=== PATIENT | male | born 1940 | race Caucasian/White ===

== ENCOUNTER 2017-12-17 15:53 | Emergency (ER) | payer MEDICARE, OTHER ==
[~2017-12-17 15:53] MED LIST: FINA1TAB2 PO; IBUP-232 PO; LORTA5 PO; [UNRECOGNIZED DRUG - REMARK]
[2017-12-17 16:25] VITALS: BP 114/65; PULSE 69; RESP 16; TEMP 98.3; O2SAT 96
[2017-12-17 17:55] LABS: BASOPHIL % 0.6 % (0.0-2.0); EOSINOPHIL # 0.2 TH/MM3 (0-0.4); EOSINOPHIL % 4.3 % (0.0-4.0); HEMATOCRIT 46.6 % (39.0-51.0); HEMOGLOBIN 16.3 GM/DL (13.0-17.0); LYMPH % 32.6 % (9.0-44.0); LYMPHOCYTE # 1.8 TH/MM3 (1.0-4.8); MEAN CELL VOLUME 90.1 FL (80.0-100.0); MEAN CORPUSCULAR HEMOGLOBIN 31.6 PG (27.0-34.0); MEAN PLATELET VOLUME 7.1 FL (7.0-11.0); MONO % 8.3 % (0.0-8.0); MONOCYTE # 0.5 TH/MM3 (0-0.9); NEUT % 54.2 % (16.0-70.0); PLATELET COUNT 184 TH/MM3 (150-450); RED BLOOD COUNT 5.17 MIL/MM3 (4.50-5.90); RED CELL DISTRIBUTION WIDTH 13.6 % (11.6-17.2); WHITE BLOOD COUNT 5.5 TH/MM3 (4.0-11.0)
[2017-12-17 18:17] LABS: ALBUMIN 3.9 GM/DL (3.4-5.0); AST (GOT) 55 U/L (15-37); BICARBONATE 26.7 MEQ/L (21.0-32.0); BLOOD UREA NITROGEN 7 MG/DL (7-18); CHLORIDE 101 MEQ/L (98-107); CREATININE 1.16 MG/DL (0.60-1.30); GLUCOSE,RANDOM 268 MG/DL (74-106); SODIUM (NA) 135 MEQ/L (136-145)
[2017-12-17 18:18] LABS: ALT (GPT) 79 U/L (12-78)
[2017-12-17 18:19] LABS: BILIRUBIN, URINE NEG (NEG); BLOOD, URINE NEG (NEG); GLUCOSE,URINE 1000 mg/dL (NEG); KETONE, URINE NEG (NEG); NITRITE,URINE NEG (NEG); URINE COLOR YELLOW (YELLW/STRAW); URINE LEUKOCYTE ESTERASE NEG (NEG)
[2017-12-17 18:20] LABS: ALKALINE PHOSPHATASE 90 U/L (45-117); TOTAL BILIRUBIN ADULT 0.4 MG/DL (0.2-1.0)
[2017-12-17 18:22] LABS: PROTHROMBIN TIME - PATIENT 10.3 SEC (9.8-11.6)
[2017-12-17] MEDS ORDERED: SODIUM CHLOR 0.9% 1000 ML INJ 1,000 ML IV ONE (18:45)
[2017-12-17 19:14] LABS: TROPONIN I LESS THAN 0.02 NG/ML (0.02-0.05)
--- NOTE | 2017-12-17 19:36 | RADRPT ---
EXAM DATE/TIME: 12/17/2017 18:45 [facility] COMPARISON: No previous studies available for comparison. INDICATIONS : Palpitations. Patient states weakness for past two months. MEDICAL HISTORY : Diabetes mellitus type II. SURGICAL HISTORY : None. ENCOUNTER: Initial ACUITY: 2 months PAIN SCORE: 0/10 LOCATION: Bilateral chest FINDINGS: A single view of the chest demonstrates the lungs to be symmetrically aerated without evidence of mas s, infiltrate or effusion. The cardiomediastinal contours are unremarkable. Osseous structures are intact. CONCLUSION: No acute disease. Mike Choudhury MD on December 17, 2017 at 19:33 Board Certified Radiologist. This report was verified electronically.
[2017-12-17] MEDS ORDERED: IOHEXOL 350 MG/ML 10 ML VIAL (for RAD DIAG) IVCONTRAST ONE (19:40)
--- NOTE | 2017-12-17 19:44 | RADRPT ---
EXAM DATE/TIME: 12/17/2017 19:29 [facility] COMPARISON: No previous studies available for comparison. INDICATIONS : Cephalgia. RADIATION DOSE: 64.63 CTDIvol (mGy) MEDICAL HISTORY : Diabetes. SURGICAL HISTORY : None. ENCOUNTER: Initial ACUITY: 1 month PAIN SCALE: 7/10 LOCATION: cranial TECHNIQUE: Multiple contiguous axial images were obtained of the head. Using automated exposure control and adj ustment of the mA and/or kV according to patient size, radiation dose was kept as low as reasonably a chievable to obtain optimal diagnostic quality images. DICOM format image data is available electro nically for review and comparison. FINDINGS: CEREBRUM: The ventricles are normal for age. No evidence of midline shift, mass lesion, hemorrhage or acute in farction. No extra-axial fluid collections are seen. POSTERIOR FOSSA: The cerebellum and brainstem are intact. The 4th ventricle is midline. The cerebellopontine angle i s unremarkable. EXTRACRANIAL: The visualized portion of the orbits is intact. SKULL: The calvaria is intact. No evidence of skull fracture. CONCLUSION: Negative noncontrast head CT with diffuse atrophic change. Mike Choudhury MD on December 17, 2017 at 19:41 Board Certified Radiologist. This report was verified electronically.
--- NOTE | 2017-12-17 19:46 | RADRPT ---
EXAM DATE/TIME: 12/17/2017 19:34 [facility] COMPARISON: No previous studies available for comparison. INDICATIONS : Right side abdomen pain. IV CONTRAST: 100 cc Omnipaque 350 (iohexol) IV ORAL CONTRAST: No oral contrast ingested. RADIATION DOSE: 8.43 CTDIvol (mGy) MEDICAL HISTORY : Diabetes. SURGICAL HISTORY : None. ENCOUNTER: Initial ACUITY: 1 month PAIN SCALE: 5/10 LOCATION: Right abdomen. TECHNIQUE: Volumetric scanning of the abdomen and pelvis was performed. Using automated exposure control and ad justment of the mA and/or kV according to patient size, radiation dose was kept as low as reasonably achievable to obtain optimal diagnostic quality images. DICOM format image data is available electro nically for review and comparison. FINDINGS: LOWER LUNGS: The visualized lower lungs are clear. LIVER: Homogeneous density without lesion. There is no dilation of the biliary tree. No calcified gallston es. There is moderate hepatic steatosis. The gallbladder is unremarkable. SPLEEN: Normal size without lesion. PANCREAS: Within normal limits. KIDNEYS: Normal in size and shape. There is no mass, stone or hydronephrosis. ADRENAL GLANDS: Within normal limits. VASCULAR: There is no aortic aneurysm. BOWEL/MESENTERY: No oral contrast was given limiting the sensitivity of the exam. There is normal appendix. The stomac h, small bowel, and colon demonstrate no acute abnormality. There is no free intraperitoneal air or fluid. ABDOMINAL WALL: Within normal limits. RETROPERITONEUM: There is no lymphadenopathy. BLADDER: No wall thickening or mass. REPRODUCTIVE: Within normal limits. INGUINAL: There is no lymphadenopathy or hernia. MUSCULOSKELETAL: Within normal limits for patient age. CONCLUSION: 1. Unremarkable bowel gas pattern and normal appendix. 2. Moderate hepatic steatosis. 3. Unremarkable gallbladder. Mike Choudhury MD on December 17, 2017 at 19:42 Board Certified Radiologist. This report was verified electronically.
[2017-12-17] MEDS ORDERED: ZOFR4TAB3 SL (20:48)
[2017-12-17] MEDS ORDERED: DICL75TA PO (20:48)
--- NOTE | 2017-12-17 20:58 | PD ---
HPI Chief Complaint: General Weakness Time Seen by Provider: 18:07 Travel History International Travel<30 days: No Contact w/Intl Traveler<30days: No Traveled to known affect area: No History of Present Illness HPI 77-year-old male that presents to the ED for evaluation of fatigue. Patient has had fatigue for about 1 month. Per patient is progressively getting worse. Per patient about 3 months ago he was told that his liver enzymes were elevated and his doctor "scared me "into stop drinking alcohol. Per patient for the past 15 years since being retired has been drinking a lot more as he has nothing else to do. Per patient his doctor told him to stop because this is causing some liver problems. Per patient he does drink on occasion but nothing recently. When asked when his last time he drank actually told me that he drank a bottle of wine yesterday. Per patient he has been feeling tired even after he sleeps. Per patient he feels tired and feels like he is falling asleep during the day. He does not wake up feeling rested at all. He has not seen his doctor for this however. He denies any chest pain or shortness of breath. He states having some headaches on occasion as well as some back pain that he has had for the past couple days. He is not sure if this is related or not. Per patient he believes that the back pain secondary to his liver issues. He states that he is not really sure what his liver issues are but he was told that he likely has problems secondary to his alcohol intake. States that his pain is 2 out of 10. PFSH Past Medical History Diabetes: Yes Musculoskeletal: Yes (RECENT FX OF L ANKLE) Social History Alcohol Use: Yes (OFTEN) Tobacco Use: No Substance Use: No Allergies-Medications (Allergen,Severity, Reaction): Coded Allergies: No Known Allergies (Verified Adverse Reaction, Unknown, 12/17/17) Reported Meds & Prescriptions Reported Meds & Active Scripts Active Diclofenac Sodium DR (Diclofenac Sodium) 75 Mg Tabdr 75 Mg PO BID PRN Zofran Odt (Ondansetron Odt) 4 Mg Tab 4 Mg SL Q6HR PRN Reported [unk diabetic med] DAILY Review of Systems Except as stated in HPI: all other systems reviewed are Neg Physical Exam Narrative GENERAL: SKIN: Warm and dry. HEAD: Atraumatic. Normocephalic. EYES: Pupils equal and round. No scleral icterus. No injection or drainage. ENT: No nasal bleeding or discharge. Mucous membranes pink and moist. Tongue is midline. No uvula deviation. NECK: Trachea midline. No JVD. CARDIOVASCULAR: Regular rate and rhythm. No murmurs, S3, S4. RESPIRATORY: No accessory muscle use. Clear to auscultation. Breath sounds equal bilaterally. GASTROINTESTINAL: Abdomen soft, non-tender, nondistended. Hepatic and splenic margins not palpable. MUSCULOSKELETAL: Extremities without clubbing, cyanosis, or edema. No obvious deformities. Full range of motion of the upper and lower extremities bilaterally. 2+ pulses bilaterally. NEUROLOGICAL: Awake and alert. No obvious cranial nerve deficits. Motor grossly within normal limits. Five out of 5 muscle strength in the arms and legs. Normal speech. PSYCHIATRIC: Appropriate mood and affect; insight and judgment normal. Data Data Last Documented VS Vital Signs Date Time Temp Pulse Resp B/P (MAP) Pulse Ox O2 Delivery O2 Flow Rate FiO2 12/17/17 16:25 98.3 69 16 114/65 (81) 96 Orders Orders Complete Blood Count With Diff (12/17/17 16:29) Comprehensive Metabolic Panel (12/17/17 16:29) Lipase (12/17/17 16:29) Prothrombin Time / Inr (Pt) (12/17/17 16:29) Act Partial Throm Time (Ptt) (12/17/17 16:29) Urinalysis - C+S If Indicated (12/17/17 16:29) Ckmb (Isoenzyme) Profile (12/17/17 18:19) Troponin I (12/17/17 18:19) B-Type Natriuretic Peptide (12/17/17 18:19) Thyroid Stimulating Hormone (12/17/17 18:19) Chest, Single Ap (12/17/17 18:19) Ct Brain W/O Iv Contrast(Rout) (12/17/17 18:19) Alcohol (Ethanol) (12/17/17 18:19) Ct Abd/Pel W Iv Contrast(Rout) (12/17/17 ) Sodium Chlor 0.9% 1000 Ml Inj (Ns 1000 M (12/17/17 18:45) Iohexol 350 Inj (Omnipaque 350 Inj) (12/17/17 19:40) Ed Discharge Order (12/17/17 20:47) Labs Laboratory Tests Test 12/17/17 17:10 White Blood Count 5.5 TH/MM3 Red Blood Count 5.17 MIL/MM3 Hemoglobin 16.3 GM/DL Hematocrit 46.6 % Mean Corpuscular Volume 90.1 FL Mean Corpuscular Hemoglobin 31.6 PG Mean Corpuscular Hemoglobin Concent 35.0 % Red Cell Distribution Width 13.6 % Platelet Count 184 TH/MM3 Mean Platelet Volume 7.1 FL Neutrophils (%) (Auto) 54.2 % Lymphocytes (%) (Auto) 32.6 % Monocytes (%) (Auto) 8.3 % Eosinophils (%) (Auto) 4.3 % Basophils (%) (Auto) 0.6 % Neutrophils # (Auto) 3.0 TH/MM3 Lymphocytes # (Auto) 1.8 TH/MM3 Monocytes # (Auto) 0.5 TH/MM3 Eosinophils # (Auto) 0.2 TH/MM3 Basophils # (Auto) 0.0 TH/MM3 CBC Comment DIFF FINAL Differential Comment Prothrombin Time 10.3 SEC Prothromb Time International Ratio 1.0 RATIO Activated Partial Thromboplast Time 25.0 SEC Urine Color YELLOW Urine Turbidity CLEAR Urine pH 5.0 Urine Specific [place] 1.026 Urine Protein NEG mg/dL Urine Glucose (UA) 1000 mg/dL Urine Ketones NEG mg/dL Urine Occult Blood NEG Urine Nitrite NEG Urine Bilirubin NEG Urine Urobilinogen LESS THAN 2.0 MG/DL Urine Leukocyte Esterase NEG Microscopic Urinalysis Comment CULT NOT INDICATED Blood Urea Nitrogen 7 MG/DL Creatinine 1.16 MG/DL Random Glucose 268 MG/DL Total Protein 8.0 GM/DL Albumin 3.9 GM/DL Calcium Level 9.0 MG/DL Alkaline Phosphatase 90 U/L Aspartate Amino Transf (AST/SGOT) 55 U/L Alanine Aminotransferase (ALT/SGPT) 79 U/L Total Bilirubin 0.4 MG/DL Sodium Level 135 MEQ/L Potassium Level 3.9 MEQ/L Chloride Level 101 MEQ/L Carbon Dioxide Level 26.7 MEQ/L Anion Gap 7 MEQ/L Total Creatine Kinase 93 U/L Troponin I LESS THAN 0.02 NG/ML Lipase 1881 U/L Thyroid Stimulating Hormone 3rd Gen 2.000 uIU/ML Ethyl Alcohol Level LESS THAN 3 MG/DL MDM Medical Decision Making Medical Screen Exam Complete: Yes Emergency Medical Condition: Yes Medical Record Reviewed: Yes Interpretation(s) CBC & BMP Diagram 12/17/17 17:10 Total Protein 8.0, Albumin 3.9, Calcium Level 9.0, Alkaline Phosphatase 90, Aspartate Amino Transf (AST/SGOT) 55 H, Alanine Aminotransferase (ALT/SGPT) 79 H , Total Bilirubin 0.4 lipase in the 1800s troponin and CKMB negative TSH WNL Last Impressions Head CT 12/17/[id number] Signed Impressions: Service Date/Time: Sunday, December 17, 2017 19:29 - CONCLUSION: Negative noncontrast head CT with diffuse atrophic change. Mike Choudhury MD Chest X-Ray [id number]/17/[id number] Signed Impressions: Service Date/Time: Sunday, December 17, 2017 18:45 - CONCLUSION: No acute disease. Mike Choudhury MD Abdomen/Pelvis CT 12/17/17 0000 Signed Impressions: Service Date/Time: Sunday, December 17, 2017 19:34 - CONCLUSION: 1. Unremarkable bowel gas pattern and normal appendix. 2. Moderate hepatic steatosis. 3. Unremarkable gallbladder. Mike Choudhury MD Differential Diagnosis Electrolyte abnormality versus pancreatitis versus fatigue versus electrolyte normality versus dehydration versus liver injury versus liver failure Narrative Course 77-year-old male that presents to the ED for evaluation of fatigue for 1 month. Patient was properly examined and was found to have signs and symptoms of unclear etiology at this time. Very nonspecific symptoms. Patient has back pain and headache. Patient does state that his doctor told him that he needed to stop drinking and apparently was found to have elevated LFTs. Labs and imaging were ordered. Labs and imaging were unremarkable other than for what appears to be elevated lipase in the . Patient was given IV fluids here. Patient not really a lot of pain. Per patient his pain is 2 out of 10 on his back. On reexamination he does not appear to have a lot of abdominal pain. He states that he has no appetite however. Unclear as to what the fatigue and other symptoms are but this is likely secondary to his pancreatitis. I highly recommend to the patient that he stays secondary to the highly elevated lipase and no history of this in the past. Patient prefers to go home as he does not want to stay in the hospital. He states that he will follow with his doctor. He understands that by leaving his illness to get worse and he could have significant disease including . AMA: The risks of leaving against medical advice without further evaluation treatment were discussed with the patient. These risks include cardiac dysfunction, cardiac dysrhythmia, possible heart attack, possible stroke or . The patient indicated understanding of these risks and appeared to have the capacity to make this decision. This time patient was told to the liquid diet and trial of nothing by mouth to help improve symptoms. Patient was given a short prescription for Zofran and diclofenac sodium. Told to follow closely with PCP. See ED worsening symptoms. he understands reasons to come back. Diagnosis Primary Impression: Acute pancreatitis Qualified Codes: K85.20 - Alcohol induced acute pancreatitis without necrosis or infection Additional Impression: Fatigue Qualified Codes: R53.83 - Other fatigue Patient Instructions: General Instructions Additional Instructions: Take medications as prescribed. Follow-up with PCP or ED if anything worsens. Liquid diet until better. Med/Other Pt SpecificInfo: Prescription(s) given Scripts Diclofenac Sodium DR (Diclofenac Sodium DR) 75 Mg Tabdr 75 MG PO BID Y for PAIN SCALE 1 TO 10, #20 TAB 0 Refills Prov: June Rob MD 12/17/17 Ondansetron Odt (Zofran Odt) 4 Mg Tab 4 MG SL Q6HR Y for Nausea/Vomiting, #20 TAB 0 Refills Prov: June Rob MD 12/17/17 Disposition: 07 AGAINST MEDICAL ADVICE Condition: Sachin Dennis Dec 17, 2017 20:58
== END 2017-12-17 21:26 | disposition left against medical advice (07) ==
LOC: NEPE 15:53
DX: K85.90 Acute pancreatitis without necrosis or infection, unspecified (principal); R53.83 Other fatigue; R51 Headache; K76.0 Fatty (change of) liver, not elsewhere classified; E11.9 Type 2 diabetes mellitus without complications; Z79.899 Other long term (current) drug therapy
CPT/HCPCS: 70450; 71045; 74177; 80053; 80307; 81001; 82550; 83690; 83880; 84443; 84484; 85025; 85610; 85730; 96360; 96361; 99285; J7030; Q9967